=== PATIENT | male | born 1955 | race Hispanic/Latino ===

== ENCOUNTER 2021-02-10 11:12 | Emergency (ER) | payer MEDICARE ==
[2021-02-10 11:35] VITALS: BP 102/51
[2021-02-10 12:26] LABS: Basophils % (Auto) 0.4 % (0.0-1.8); Eosinophils % (Auto) 0.3 % (0.0-4.3); Hematocrit 44.3 % (35.5-45.6); Lymphocytes # (Auto) 0.8 K/mm3 (1.2-5.4); Lymphocytes % (Auto) 6.7 % (13.4-35.0); Mean Corpuscular HGB Conc 34 % (32-34); Mean Corpuscular Volume 95 fl (84-94); Monocytes # (Auto) 0.5 K/mm3 (0.0-0.8); Monocytes % (Auto) 4.2 % (0.0-7.3); Platelet Count 186 K/mm3 (140-440); Red Blood Count 4.66 M/mm3 (3.65-5.03)
[2021-02-10 12:51] LABS: Alanine Aminotransferase 16 units/L (7-56); Albumin 4.3 g/dL (3.9-5); BUN/Creatinine Ratio 21; Blood Urea Nitrogen 21 mg/dL (9-20); Calcium 9.6 mg/dL (8.4-10.2); Hemolysis Index 3
--- NOTE | 2021-02-10 15:11 | Emergency Department Report ---
Chief Complaint: Seizure Stated Complaint: GENERAL SYMPTOMS Time Seen by Provider: 02/10/21 15:02 - HPI History of Present Illness: flew from [place] today. noticed when he was sleeping on the plane his right hand was jerking, he was not responding. He started to have jerking and violent sneezing. He woke up and did know any thing was going on. he was then disorient ed and had diaphoresis. Since then he has returned to his baseline. - ROS Review of Systems: Patient denies any associated fever, chills, night sweats, headache, dizziness, blurry vision, nausea, vomiting, diarrhea, chest pain, shortness of breath, weakness or any other associated symptoms. - Exam Vital Signs: Vital Signs 02/10/21 11:30 Temperature 97.8 F Pulse Rate 60 Respiratory 20 Rate Blood Pressure 102/51 O2 Sat by Pulse 97 Oximetry Physical Exam: GENERAL APPEARANCE: Well-developed, well-nourished, no acute distress HEENT: Normocephalic and atraumatic. No scleral icterus. Pupils are equal, round, and reactive to light and accommodation. No conjunctival injection is noted. Oropharynx is clear. Mouth revealed good dentition, no lesions. Tympanic membranes are clear. NECK: Supple. Trachea is midline. No evidence of thyroid enlargement. No lymphadenopathy or tenderness. CHEST: Symmetric. Nontender to palpation. LUNGS: Breath sounds are equal and clear bilaterally. No wheezes, rhonchi, or rales. HEART: Regular rate and rhythm with normal S1 and S2. No murmurs, gallops, or rubs. BREASTS: Symmetrical. No skin or nipple retractions. No nipple discharges or masses. ABDOMEN: Soft, flat, and benign. No mass, tenderness, guarding, or rebound. No organomegaly or hernia. Bowel sounds are present. No CVA tenderness or flank mass. GENITOURINARY: Deferred RECTAL: Deferred EXTREMITIES: No cyanosis, clubbing, or edema. No lower extreme edema, negative Homans sign bilaterally NEUROLOGIC: No focal sensory or motor deficits are noted. Gait is normal. Second Baker nial nerves II through XII are intact. Deep tendon reflexes are intact. PSYCHIATRIC: The patient is awake, alert, and oriented x3. Recent and remote memory is intact. Appropriate mood and affect. SKIN: Warm, dry, and well perfused. Good turgor. No lesions, nodules or rashes are noted. No onychomycosis. LYMPHATICS: No cervical, axillary, or groin adenopathy is noted. MSE screening note: Focused history and physical exam performed. Due to findings the following was ordered: Routine lab work was ordered per protocol. CT head without contrast was ordered per protocol. Patient at this time had an unremarkable neurologic exam and per symptoms have returned to baseline. ED Medical Decision Making - Lab Data Result diagrams: 02/10/21 12:15 02/10/21 12:15 ED Disposition for MSE Clinical Impression: Seizure Condition: Stable Additional Instructions: As we discussed I would avoid any activities that could be potentially harmful if you were to have another seizure including driving and per [place] law you are not allowed to drive for 6 months after a possible seizure. Is very important you follow-up with a neurologist for proper evaluation and work-up. We have started you on a medication called Keppra that should help prevent seizures. Please follow-up as soon as possible with neurology and return to the ER with any changing or worsening symptoms Referrals: FE CHATTERJEE [Other] - 3-5 Days JING SCHWARZ MD [Referring] - 3-5 Days
--- NOTE | 2021-02-10 16:02 | Cat Scan Report ---
CT head/brain wo con INDICATION: seizure, passed out, ams for a few hours. TECHNIQUE: All CT scans at this location are performed using CT dose reduction for ALARA by means of automated e xposure control. COMPARISON: None available. FINDINGS: There is no evidence of hemorrhage, hydrocephalus, brain edema, or mass effect/mass lesion. There is overall normal brain formation and brain volume for the patient's age. Ventricular and cisternal/sulc al size is normal for age. The included paranasal sinuses and mastoid air cells are clear. The orbits appear unremarkable. IMPRESSION: 1. No acute intracranial abnormality. Signer Name: Delroy Robles MD Signed: 02/10/2021 3:58 PM Workstation Name: [id number] (by [id number]
[2021-02-10] MEDS ORDERED: levETIRAcetam 500 MG/5 ML ORAL LIQD PO ONE (16:26)
--- NOTE | 2021-02-10 16:56 | Emergency Department Report ---
ED General Adult HPI - General Chief complaint: Seizure Stated complaint: GENERAL SYMPTOMS Time Seen by Provider: 02/10/21 15:27 Source: patient Mode of arrival: Wheelchair Limitations: No Limitations - History of Present Illness Initial comments: This is a pleasant 65 yo male who presents to the ED with a chief complaint of seizure like activity while flying on plane today. Flew from [place] today. noticed when he was sleeping on the plane his right hand was jerking, he was not responding to her when she tried to wake him up. He started to have jerking of his arms and violent sneezing followed by one episode of vomiting. He woke up and did know any thing was going on. He was then disoriented and had diaphoresis for a few minutes and began to return to normal. Since then he has returned to his baseline per his . He denies any known past medical hitory other than depression which he takes welbutrin and is compliant with his therapy. He deneis any drug or alcohol use, change in his routine, sleeping or eating habits. He denies any history of seizure. . - Related Data Previous Rx's Medication Instructions Recorded Last Taken Type levETIRAcetam [Keppra TAB] 500 mg PO BID #30 tablet 02/10/21 Unknown Rx Allergies Allergy/AdvReac Type Severity Reaction Status Date / Time No Known Allergies Allergy Unverified 02/10/21 11:16 ED Review of Systems ROS: Stated complaint: GENERAL SYMPTOMS Other details as noted in HPI Comment: All other systems reviewed and negative Constitutional: denies: chills, fever Eyes: denies: eye pain, eye discharge, vision change ENT: denies: ear pain, throat pain Respiratory: denies: cough, shortness of breath, wheezing Cardiovascular: denies: chest pain, palpitations Endocrine: no symptoms reported Gastrointestinal: denies: abdominal pain, nausea, diarrhea Genitourinary: denies: urgency, dysuria Musculoskeletal: denies: back pain, joint swelling, arthralgia Skin: denies: rash, lesions Neurological: as per HPI. denies: headache, weakness, paresthesias Psychiatric: denies: anxiety, depression Hematological/Lymphatic: denies: easy bleeding, easy bruising ED Past Medical Hx - Past Medical History Previous Medical History?: No - Surgical History Past Surgical History?: Yes Additional Surgical History: sinus surgery - Medications Home Medications: Home Medications Medication Instructions Recorded Confirmed Last Taken Type levETIRAcetam [Keppra TAB] 500 mg PO BID #30 tablet 02/10/21 Unknown Rx ED Physical Exam - General Limitations: No Limitations General appearance: alert, in no apparent distress - Head Head exam: Present: atraumatic, normocephalic - Eye Eye exam: Present: normal appearance, PERRL, EOMI Pupils: Present: normal accommodation - ENT ENT exam: Present: normal exam, normal orophraynx, mucous membranes moist - Neck Neck exam: Present: normal inspection, full ROM, other (No bruits). Absent: tenderness, meningismus - Respiratory Respiratory exam: Present: normal lung sounds bilaterally. Absent: respiratory distress, wheezes, rales, rhonchi, stridor - Cardiovascular Cardiovascular Exam: Present: regular rate, normal rhythm, normal heart sounds. Absent: systolic murmur, diastolic murmur, rubs, gallop - GI/Abdominal GI/Abdominal exam: Present: soft, normal bowel sounds. Absent: distended, tenderness, guarding, rebound, rigid - Rectal Rectal exam: Present: deferred - Extremities Exam Extremities exam: Present: normal inspection, full ROM, normal capillary refill. Absent: tenderness, calf tenderness - Back Exam Back exam: Present: normal inspection, full ROM. Absent: tenderness, CVA tenderness (R), CVA tenderness (L) - Neurological Exam Neurological exam: Present: alert, oriented X3, CN II-XII intact, normal gait, other (Normal strength and sensation the bilateral upper and lower extremities, normal gait without ataxia, normal [id number] and [id number], no focal neurologic deficits) - Psychiatric Psychiatric exam: Present: normal affect, normal mood - Skin Skin exam: Present: warm, dry, intact, normal color. Absent: rash ED Course Vital Signs 02/10/21 11:30 Temperature 97.8 F Pulse Rate 60 Respiratory 20 Rate Blood Pressure 102/51 O2 Sat by Pulse 97 Oximetry ED Medical Decision Making - Lab Data Result diagrams: 02/10/21 12:15 02/10/21 12:15 Lab Results 02/10/21 02/10/21 02/10/21 Range/Units 11:21 12:15 12:15 WBC 11.6 H (4.5-11.0) K/mm3 RBC 4.66 (3.65-5.03) M/mm3 Hgb 15.0 (11.8-15.2) gm/dl Hct 44.3 (35.5-45.6) % MCV 95 H (84-94) fl MCH 32 (28-32) pg MCHC 34 (32-34) % RDW 14.0 (13.2-15.2) % Plt Count 186 (140-440) K/mm3 Lymph % (Auto) 6.7 L (13.4-35.0) % [place] % (Auto) 4.2 (0.0-7.3) % Eos % (Auto) 0.3 (0.0-4.3) % Baso % (Auto) 0.4 (0.0-1.8) % Lymph # (Auto) 0.8 L (1.2-5.4) K/mm3 [place] # (Auto) 0.5 (0.0-0.8) K/mm3 Eos # (Auto) 0.0 (0.0-0.4) K/mm3 Baso # (Auto) 0.0 (0.0-0.1) K/mm3 Seg Neutrophils % 88.4 H (40.0-70.0) % Seg Neutrophils # 10.3 H (1.8-7.7) K/mm3 Sodium 136 L (137-145) mmol/L Potassium 4.8 (3.6-5.0) mmol/L Chloride 101.4 (98-107) mmol/L Carbon Dioxide 27 (22-30) mmol/L Anion Gap 12 mmol/L BUN 21 H (9-20) mg/dL Creatinine 1.0 (0.8-1.3) mg/dL Estimated GFR > 60 ml/min BUN/Creatinine Ratio 21 % Glucose 145 H (75-100) mg/dL POC Glucose 168 H (70-105) mg/dL Calcium 9.6 (8.4-10.2) mg/dL Magnesium (1.7-2.3) mg/dL Total Bilirubin 0.30 (0.1-1.2) mg/dL AST 17 (5-40) units/L ALT 16 (7-56) units/L Alkaline Phosphatase 55 (35-129) units/L Troponin T (0.00-0.029) ng/mL Total Protein 6.5 (6.3-8.2) g/dL Albumin 4.3 (3.9-5) g/dL Albumin/Globulin Ratio 2.0 % 02/10/ Range/Units 12:15 WBC (4.5-11.0) K/mm3 RBC (3.65-5.03) M/mm3 Hgb (11.8-15.2) gm/dl Hct (35.5-45.6) % MCV (84-94) fl MCH (28-32) pg MCHC (32-34) % RDW (13.2-15.2) % Plt Count (140-440) K/mm3 Lymph % (Auto) (13.4-35.0) % [place] % (Auto) (0.0-7.3) % Eos % (Auto) (0.0-4.3) % Baso % (Auto) (0.0-1.8) % Lymph # (Auto) (1.2-5.4) K/mm3 [place] # (Auto) (0.0-0.8) K/mm3 Eos # (Auto) (0.0-0.4) K/mm3 Baso # (Auto) (0.0-0.1) K/mm3 Seg Neutrophils % (40.0-70.0) % Seg Neutrophils # (1.8-7.7) K/mm3 Sodium (137-145) mmol/L Potassium (3.6-5.0) mmol/L Chloride (98-107) mmol/L Carbon Dioxide (22-30) mmol/L Anion Gap mmol/L BUN (9-20) mg/dL Creatinine (0.8-1.3) mg/dL Estimated GFR ml/min BUN/Creatinine Ratio % Glucose (75-100) mg/dL POC Glucose (70-105) mg/dL Calcium (8.4-10.2) mg/dL Magnesium 2.30 (1.7-2.3) mg/dL Total Bilirubin (0.1-1.2) mg/dL AST (5-40) units/L ALT (7-56) units/L Alkaline Phosphatase (35-129) units/L Troponin T < 0.010 (0.00-0.029) ng/mL Total Protein (6.3-8.2) g/dL Albumin (3.9-5) g/dL Albumin/Globulin Ratio % - Radiology Data Radiology results: report reviewed, image reviewed CT head/brain wo con INDICATION: seizure, passed out, ams for a few hours. TECHNIQUE: All CT scans at this location are performed using CT dose reduction for ALARA by means of automated exposure control. COMPARISON: None available. FINDINGS: There is no evidence of hemorrhage, hydrocephalus, brain edema, or mass effect/mass lesion. There is overall normal brain formation and brain volume for the patient's age. Ventricular and cisternal/sulcal size is normal for age. The included paranasal sinuses and mastoid air cells are clear. The orbits appear unremarkable. IMPRESSION: 1. No acute intracranial abnormality. Signer Name: Delroy Robles MD Signed: 02/10/2021 3:58 PM Workstation Name: [id number] Transcribed By: JAYLYN Dictated By: Delroy Robles MD Electronically Authenticated By: Delroy Robles MD Signed Date/Time: 02/10/21 [id number] - Medical Decision Making Patient is nontoxic in no acute distress. Currently has no symptoms at all. Due to the complaint and the symptoms of the described I am concerned that he may have had a seizure. Discussed with attending physician Dr. Dugan who recommended that we start the patient on Keppra and give him 1 g loading dose now and discharged with close neurology follow-up. I did order this medication however the patient politely declines that he prefer not to take this medication until he gets home. I educated him that he could have another seizure if that is what this was. I did consider TIA however the patient had no risk factors for this and my suspicion is low. I will start him on daily aspirin. I recommended that he start taking the medication as an outpatient as soon as possible and also recommended he follow-up with neurology soon as possible. I educated the patient that due to [place] law he would not be able to drive by law for up to 6 months or until being cleared by neurology. He verbalized understanding. - Differential Diagnosis Seizure, TIA, dehydration Critical care attestation.: If time is entered above; I have spent that time in minutes in the direct care of this critically ill patient, excluding procedure time. ED Disposition Clinical Impression: Seizure Disposition: 01 HOME / SELF CARE / HOMELESS Is pt being admited?: No Condition: Stable Instructions: Seizure, Adult Additional Instructions: As we discussed I would avoid any activities that could be potentially harmful if you were to have another seizure including driving and per [place] law you are not allowed to drive for 6 months after a possible seizure. Is very important you follow-up with a neurologist for proper evaluation and work-up. We have started you on a medication called Keppra that should help prevent seizures. Please follow-up as soon as possible with neurology and return to the ER with any changing or worsening symptoms Prescriptions: levETIRAcetam [Keppra TAB] 500 mg PO BID #30 tablet Referrals: FE CHATTERJEE [Other] - 3-5 Days JING SCHWARZ MD [Referring] - 3-5 Days Time of Disposition: 16:56
--- NOTE | 2021-02-12 17:15 | Electrocardiograph Report ---
[facility] Test Date: 2021-02-10 Test Time: 11:44:41 Pat Name: BOBBY HODGE Department: Room: Gender: M [employer]umping [employer]: ARIANA : 1955 Requested By: LUKE MILNER Order Number: [id number] Reading MD: Cedric Nichole Measurements Intervals [place] Rate: 56 P: 37 AK: 155 QRS: 33 QRSD: 94 T: 47 QT: 418 QTc: 404 Interpretive Statements Sinus bradycardia No previous ECG available for comparison Electronically Signed On 02-12-2021 17:15:33 EDT by Cedric Nichole
== END 2021-02-10 17:18 | disposition home or self-care (01) ==
LOC: ED 11:12
DX: R56.9 Unspecified convulsions (principal); Z98.890 Other specified postprocedural states
CPT/HCPCS: 36415; 70450; 80053; 82962; 83735; 84484; 85025; 93005; 99284